=== PATIENT | male | born 2000 ===

== ENCOUNTER → 2025-04-08 09:00 | Outpatient (BNV) | payer BC, SELFPAY | PROVIDERS: Visit Provider Internal Medicine | DX: I49.49 Other premature depolarization (principal) | CPT/HCPCS: 93244 ==

== ENCOUNTER → 2025-04-08 10:00 | Outpatient (REF) | payer BC, SELFPAY ==
--- NOTE | 2025-04-08 09:00 | HM_ITS ---
* Total monitoring time 7 days. * Underlying rhythm is sinus with an average rate of 74/Min. * Rare supraventricular ectopy. * No significant pauses or high-grade AV blocks. * No patient markers or diary events. MTDD
--- OUTSIDE RECORDS SUMMARY | 2025-04-28 15:01 | XMS_ITS | Clinical Summary ---
Author Organization [facility] Address [address] [place] [phone] Phone Care Team Providers Care Food Vendor Name Role Phone Unavailable Primary Care Provider Unavailabl e Allergies No known active allergies Medications No known medications Encounters Date Type Department Care Team Description 03/29/2025 9:43 PM EDT - 03/29/2025 9:44 PM EDT Emergency [facility] [address] [place] [address] Discharge Disposition: Left Without Being Seen from Last 3 Months Social History Tobacco Use Types Packs/Day Years Used Date Smoking Tobacco: Never Assessed Education Answer Date Recorded Are you interested in more education? Not on lamin e 03/30/2025 Are you concerned about learning? Not on file 03/30/2025 No 03/30/2025 No 03/30/2025 Digital Access Answer Date Recorded No 03/30/2025 No 03/30/2025 Reliable internet access at home? Not on file 03/30/2025 Device with a working camera? Not on file Intimate Partner Violence Answer Date R ecorded Are you denied basic needs s uch as food, clothing, or medical care? No 03/29/2025 In the past 12 months have y ou been in a relationship with a person who hurts, threatens, or tries to control you? No 03/29/2025 Are you denied basic needs s uch as food, clothing, or medical care? No 03/29/2025 In the past 12 months have y ou been in a relationship with a person who hurts, threatens, or tries to control you? No 03/29/2025 Sex and Gender Information Value Date Recorded Sex Assigned at Male 03/29/2025 5:07 PM EDT Legal Sex Male 4:43 PM EDT Gender Identity Male 03/29/2025 5:07 PM EDT Sexual Orientation Straight 03/29/2025 5: 07 PM EDT Last Filed Vital Signs Vital Sign Reading Time Taken Comments Blood Pressure 132/68 03/29/2025 5:01 PM EDT Pulse 79 03/29/2025 5:01 PM EDT Temperature 36.8 C (98.2 F) 03/29/2025 5:01 PM EDT Respiratory Rate 18 03/29/2025 5:01 PM EDT Oxygen Saturation 98% 03/29/2025 5:01 PM EDT Inhaled Oxygen Concentration - - Weight 74 kg (163 lb 2.3 oz) 03/29/2025 5:01 PM EDT Height 177.8 cm (5' 10 ) 03/29/2025 5:01 PM EDT Body Mass Index 23.41 03/29/2025 5:01 PM EDT Plan of Treatment Health Maintenance Due Date Last Done Comments Adult Td,Tdap Booster 2002 DEPRESSION SCREENING 2014 SMOKING Hx and SMOKELESS TOB ACCO SCREENING 12/29/2015 HPV VACCINES (1 - Male 3-dos e series) 2017 MENINGOCOCCAL VACCINES (B) ( 1 of 2 - Standard) 2018 HEPATITIS C SCREENING 2020 HIV ONE-TIME SCREENING (18-6 5 YEARS) 2020 INFLUENZA VACCINE (#1) 2025 COVID-19 VACCINE (1 - 2023-2 5 season) 2025 HEPATITIS A VACCINES Aged Out No long er eligible based on patient's age to complete this topic HIB VACCINES Aged Out No longer eligi ble based on patient's age to complete this topic MENINGOCOCCAL VACCINES (ACWY) Aged Out No longer eligible based on patient's age to complete this topic PNEUMOCOCCAL VACCINES (0-49 years) Aged Out No longer eligible based on patient's age to complete this topic Medical Devices Not on file Procedures Procedure Name Priority Date/Time Associated Diagnosis Comments BASIC METABOLIC PANEL STAT 03/29/2025 5:16 PM EDT CBC AND DIFFERENTIAL STAT 03/29/2025 5:16 PM EDT ECG 12-LEAD STAT 03/29/2025 4:53 PM EDT from Last 3 Months Results * CBC and differential (03/29/2025 5:16 PM EDT) WBC 5.85 4.00 - 11.00 K/uL [facility] RBC 4.62 4.50 - 5.90 M/uL [facility] HGB 13.8 13.5 - 17.5 g/dL [facility] HCT 42.1 41.0 - 53.0 % [facility] PLT 246 150 - 450 K/uL [facility] MCV 91.1 80.0 - 100.0 fL [facility] MCH 29.9 27.0 - 31.0 pg [facility] MCHC 32.8 32.0 - 36.0 g/dL [facility] RDW 12.8 11.5 - 14.5 % [facility] MPV 10.8 8.4 - 12.0 fL [facility] NRBC 0.00 0.00 /100 WBCs [facility] ABSOLUTE NRBC 0.00 0.00 K/uL [facility] DIFF METHOD Auto [facility] NEUTS 48.7 48.0 - 76.0 % [facility] LYMPHS 38.1 18.0 - 41.0 % [facility] MONOS 7.4 4.0 - 11.0 % [facility] EOS 4.6 0.0 - 5.0 % [facility] BASOS 0.9 0.0 - 1.5 % [facility] Granulocytes, immature (%) 0.3 0.0 - 0.9 % [facility] ABSOLUTE NEUTS 2.85 1.92 - 7.60 K/uL [facility] ABSOLUTE LYMPHS 2.23 0.72 - 4.10 K/uL [facility] ABSOLUTE MONOS 0.43 0.16 - 1.10 K/uL [facility] ABSOLUTE EOS 0.27 0.00 - 0.50 K/uL [facility] ABSOLUTE BASOS 0.05 0.00 - 0.15 K/uL [facility] Granulocytes, immature 0.02 0.00 - 0.09 K/uL [facility] Blood 03/29/2025 5:16 PM EDT 03/29/2025 5:35 PM EDT us Dez Wilson MD LAB BLOOD ORDERAB LES Final Result Performing Organization Address [facility] Co de Phone Number [address] [phone] * Basic metabolic panel (03/29/2025 5:16 PM EDT) SODIUM 140 133 - 146 mmol/L [facility] CHLORIDE 105 96 - 108 mmol/L [facility] POTASSIUM 4.1 3.3 - 5.1 mmol/L [facility] Comment:Specimen slightly he molyzed, result may be falsely elevated. CO2 23 21 - 35 mmol/L [facility] BUN 15 6 - 19 mg/dL [facility] CREATININE 0.90 0.5 - 1.5 mg/dL [facility] GLUCOSE 97 70 - 99 mg/dL [facility] CALCIUM 9.5 8.4 - 10.3 mg/dL [facility] EGFR >120 >59 mL/min/1.7 3m2 [facility] Comment:Estimated glomerular filtration rate calculated using the CKD-EPI refit equation. ANION GAP 16 10 - 20 mmol/L [facility] Blood 03/29/2025 5:16 PM EDT 03/29/2025 5:35 PM EDT us Dez Wilson MD LAB BLOOD ORDERAB LES Final Result Performing Organization Address [facility] Co de Phone Number [address] [phone] * ECG 12-LEAD (03/29/2025 4:53 PM EDT) Ventricular Rate EKG/MIN 82 BPM [facility] Atrial Rate 82 BPM [facility] [place] Interval 160 ms [facility] QRS Duration 88 ms [facility] QT Interval 350 ms [facility] QTC Interval 408 ms [facility] P [place] 56 degrees [facility] R Wave [place] 47 degrees [facility] T Wave [place] 34 degrees [facility] 03/29/2025 4:53 PM EDT 03/30/2025 11:13 AM EDT Narrative [facility] - 03/30/2025 11:13 AM EDT Normal sinus rhythm Normal ECG No previous ECGs available Confirmed by Duncan Cunha ([id number]) on 03/30/2025 11:13:47 AM Dez Wilson MD ECG ORDERABLES F inal Result [facility] from Last 3 Months Insurance PPO EPO PPO EPO PPO EPO PPO EPO PPO EPO PPO EPO Additional Source Comments The information contained in this document represents components of the legal health record. It is not the complete legal health record.[facility]
== END ==
LOC: HO.CARD 10:00
PROVIDERS: Visit Provider Social Worker Clinical
DX: R42 Dizziness and giddiness (principal)
CPT/HCPCS: 93242